=== PATIENT | female | born 1995 | race Caucasian/White ===

== ENCOUNTER 2017-11-16 03:18 | Emergency (ER) | payer MEDICAID ==
[~2017-11-16] VITALS: Ht 157.5 cm; Wt 66.2 kg
[~2017-11-16 03:18] MED LIST: FERR325E14 PO; PREN-385 PO
[2017-11-16 03:32] VITALS: BP 124/94
[2017-11-16] MEDS ORDERED: NACL 0.9% 1,000 ML IV SCH (03:39)
[2017-11-16] MEDS ORDERED: MORPHINE SULFATE 4 MG/ML SYR IVP ONE (03:40)
[2017-11-16] MEDS ORDERED: KETOROLAC 30 MG/ML VIAL IVP ONE (03:40)
[2017-11-16] MEDS ORDERED: FAMOTIDINE 20 MG/2 ML VIAL IVP ONE (03:40)
[2017-11-16] MEDS ORDERED: ONDANSETRON 4 MG/2 ML VIAL IVP ONE (03:40)
[2017-11-16 03:56] LABS: BASOPHILS % (AUTO) 0.4 % (0.0-2.0); EOSINOPHILS # (AUTO) 0.1 K/uL (0-0.4); EOSINOPHILS % (AUTO) 1.8 % (0.0-4.0); HEMATOCRIT 40.4 % (36-48); HEMOGLOBIN 13.6 g/dL (12.0-16.0); LYMPHOCYTES # (AUTO) 2.2 K/uL (2.5-16.5); MEAN CORPUSCULAR HEMOGLOBIN 30 pg (27-31); MEAN CORPUSCULAR HGB CONC 34 g/dL (33-37); MEAN CORPUSCULAR VOLUME 90.2 fL (80-94); MONOCYTES # (AUTO) 0.4 K/uL (0.8-1.0); MONOCYTES % (AUTO) 5.2 % (1.7-9.3); NEUTROPHILS % (AUTO) 64.6 % (42.2-75.2); PLATELET COUNT (AUTO) 314 K/uL (140-450); RED BLOOD CELL COUNT(AUTO) 4.48 MIL/uL (4.20-5.40); RED CELL DISTRIBUTION WIDTH 12.3 % (11.6-13.7); WHITE BLOOD COUNT (AUTO) 7.7 K/uL (4.8-10.8)
[2017-11-16 04:13] LABS: ANION GAP 16.2 (8-16); CARBON DIOXIDE 22.2 mmol/L (21-32); CREATININE 0.7 mg/dL (0.6-1.3); POTASSIUM 3.4 mmol/L (3.5-5.1)
[2017-11-16 04:20] LABS: APPEARANCE,URINE CLEAR (CLEAR); BILIRUBIN,URINE NEGATIVE (NEGATIVE); BLOOD, URINE TRACE-I (NEGATIVE); COLOR,URINE YELLOW (YELLOW); LEUKOCYTE ESTERASE ,URINE NEGATIVE (NEGATIVE); NITRITE, URINE NEGATIVE (NEGATIVE); UGLUCOSE NEGATIVE (NEGATIVE)
[2017-11-16 04:35] LABS: ALBUMIN 3.9 g/dL (3.4-5.0); TOTAL BILIRUBIN 0.6 mg/dL (0.0-1.0)
[2017-11-16 04:50] LABS: RBC,URINE 0-5 (RARE) /HPF (0-5); WBC,URINE 0-5 (RARE) /HPF (0-5)
[2017-11-16 06:36] VITALS: BP 121/81
== END 2017-11-16 06:36 | disposition home or self-care (01) ==
LOC: MED 03:18
DX: K80.20 Calculus of gallbladder without cholecystitis without obstruction (principal); K29.70 Gastritis, unspecified, without bleeding; Z79.899 Other long term (current) drug therapy
CPT/HCPCS: 36415; 76705; 80053; 81001; 82150; 83690; 84703; 85025; 87086; 96361; 96374; 96375; 99285; J1885; J2270; J2405; J3490; J7030; Q0092; 99284

== ENCOUNTER 2018-07-15 21:13 | Emergency (ER) | payer MEDICAID ==
[~2018-07-15] VITALS: Ht 157.5 cm; Wt 65.8 kg
[2018-07-15 21:19] VITALS: BP 144/67
[2018-07-15 21:21] VITALS: BP 144/67
--- NOTE | 2018-07-15 21:21 | NUR ---
TO LOBBY A/W BED, JEREMY OSBORN NOTED
--- NOTE | 2018-07-15 23:07 | NUR ---
PT NO ANSWER X1, CALLED IN AND OUT OF LOBBY
--- NOTE | 2018-07-15 23:13 | NUR ---
PT NO ANSWER X2, CALLED IN AND OUT OF LOBBY
--- NOTE | 2018-07-15 23:30 | NUR ---
PATIENT LEFT WITHOUT BEING SEEN BY DR. AHUMADA. NO FURTHER CARE PROVIDED FOR PATIENT.
--- NOTE | 2018-07-15 23:30 | NUR ---
PT NO ANSWER X3, CALLED IN AND OUT OF LOBBY
== END 2018-07-15 23:07 | disposition left against medical advice (07) ==
LOC: MED 21:13
DX: R10.13 Epigastric pain (principal); Z53.21 Procedure and treatment not carried out due to patient leaving prior to being seen by health care provider
CPT/HCPCS: 81002; 81025

== ENCOUNTER 2020-04-05 00:15 | Emergency (ER) | payer MEDICAID, OTHER ==
[~2020-04-05] VITALS: Ht 157.5 cm; Wt 68.0 kg
[2020-04-05 00:39] VITALS: BP 134/83
--- NOTE | 2020-04-05 00:42 | NUR ---
TO LOBBY A/W BED AMBULATORY
--- NOTE | 2020-04-05 01:40 | NUR ---
SEEN AND EXAMINED BY ASH WITH ORDER, AND CARRIED OUT.
[2020-04-05] MEDS ORDERED: LIDOCAINE MPF 1% 10 MG/ML VIAL INJ ONE (01:45)
--- NOTE | 2020-04-05 02:10 | NUR ---
Patient has a 1 cm laceration to LEFT THUMB. Dr. GOSS applied sutures using sterile technique. Edges well approximated. Site cleansed with NS. No bleeding noted. Pt tolerated well.
[2020-04-05 02:50] VITALS: BP 134/83
--- NOTE | 2020-04-05 02:50 | NUR ---
Patient discharged with v/s stable. Written and verbal after care instructions given and explained. Patient verbalized understanding. Ambulatory with steady gait. All questions addressed prior to discharge. Advised to follow up with PMD.
== END 2020-04-05 02:50 | disposition home or self-care (01) ==
LOC: MED 00:15
DX: S61.012A Laceration without foreign body of left thumb without damage to nail, initial encounter (principal); W26.0XXA Contact with knife, initial encounter; Y93.89 Activity, other specified; Y92.090 Kitchen in other non-institutional residence as the place of occurrence of the external cause; Y99.8 Other external cause status
CPT/HCPCS: 12001; 90471; 90715; 99283; J2001